=== PATIENT | male | born 1990 | race Caucasian/White ===

== ENCOUNTER 2017-01-07 09:24 | Emergency (ER) | payer OTHER ==
[~2017-01-07] VITALS: Ht 172.7 cm; Wt 71.0 kg
[2017-01-07 09:26] VITALS: Ht 172.7 cm; Wt 71.0 kg
[2017-01-07] MEDS ORDERED: IBUPROFEN 800 MG TAB PO ONE (10:00)
--- NOTE | 2017-01-07 10:07 | ERD ---
ER Documentation Chief Complaint Date/Time DATE: 01/07/17 TIME: 10:04 Chief Complaint lt hand pain from previous injury HPI This is a 26-year-old male who presents to the emergency department today complaining of some left hand pain. Patient states he had an injury to his left hand on August 24 and had surgery in September 11 and had pins placed. Patient states he was not scheduled to have the pins removed until December 03 however he never got them removed because he went to [facility]. Patient states he was in [facility] for 6 [facility]. States that one pin fell out on its own. States that the other pain is bothering him and he wants it removed. Patient states he initially took [place] and tramadol for the pain. States that the doctor that was seen him and was going to do the pin removal no longer takes his insurance. Denies any fevers or chills or new trauma. ROS All systems reviewed and are negative except as per history of present illness. Medications Home Meds Active Scripts Naproxen* (Naprosyn*) 500 Mg Tablet, 500 MG PO BID Y for PAIN AND/OR INFLAMMATION, #30 TAB Prov:PAT MONTES PA-C 01/07/17 Allergies Allergies: Coded Allergies: No Known Allergy (Unverified , 08/13/13) PMhx/Soc History of Surgery: Yes (LEFT HAND) Anesthesia Reaction: No Hx Neurological Disorder: No Hx Respiratory Disorders: No Hx Cardiac Disorders: No Hx Psychiatric Problems: No Hx Miscellaneous Medical Probl: No Hx Alcohol Use: No Hx Substance Use: No Hx Tobacco Use: No Physical Exam Vitals Vital Signs Date Time Temp Pulse Resp B/P Pulse Ox O2 Delivery O2 Flow Rate FiO2 01/07/17 09:26 98.1 66 16 136/74 98 Physical Exam Const: No acute distress Head: Atraumatic Eyes: Normal Conjunctiva ENT: Normal External Ears, Nose and Mouth. Neck: Full range of motion..~ No meningismus. Resp: Clear to auscultation bilaterally Cardio: Regular rate and rhythm, no murmurs Abd: Soft, non tender, non distended. Normal bowel sounds Skin: No petechiae or rashes Back: No midline or flank tenderness MSK left hand with no obvious deformity. Mild effusion. No ecchymosis. Tenderness to palpation fourth and fifth metatarsal with evidence of pin placement. Good cap refill. Pulses 2+. Neur: Awake and alert Psych: Normal Mood and Affect Results 24 hrs Current Medications Medications (Trade) Dose Ordered Sig/Chirag Route PRN Reason Start Time Stop Time Status Last Admin Dose Admin Ibuprofen (Motrin) 800 mg ONCE ONCE PO 01/07/17 10:00 01/07/17 10:01 DC 01/07/17 09:44 Patient: LESLIE GASPAR : 1990 Age: 26 Sex: M MR #: [id number] DOS: 01/07/17 0000 Ordering MD: PAT MONTES PA-C Location: [facility] Room/Bed: PROCEDURE: Left hand series CLINICAL INDICATION: Trauma. Pin placement. TECHNIQUE: Three views of the left hand were obtained. COMPARISON: No prior studies are available for comparison. FINDINGS: There is normal mineralization and alignment of the bones of the left hand. There is a fracture through the base of the fourth metacarpal. There is a skin traversing the base of the fourth metacarpal fracture consistent with given history of pin placement. The hardware appears intact. No other fractures are identified. The soft tissues are within normal limits. IMPRESSION: 1. Fifth metacarpal fracture with associated metallic pin. RPTAT: KK .Sanjeev Sood MD, MD Date Time Electronically viewed and signed by .Sanjeev Sood MD, MD on 2016 10:16 .B/ CC: PAT MONTES PA-C Procedures/MDM This is a 26-year-old male who presents to the emergency department today complaining of left hand pain. Patient patient had a trauma in August 24 and had pins placed. Patient has not been seen here in the emergency department for this injury and therefore did obtain images of the patient's left hand to evaluate the pin placement. Per the radiology report images of the left hand show 1/5 metacarpal fracture with associated metallic pin. There is normal mineralization and alignment of the bones. There is also fracture through the base of the fourth metacarpal. There is skin traversing the base of the fourth metacarpal fracture consistent with given history of pin placement. There are no other fractures identified. Soft tissues are within normal limits. Patient's fracture and pin placement as a source of the patient's pain. Patient has acute on chronic pain. Patient is afebrile and otherwise well-appearing. There is no erythema or warmth and of low suspicion for septic joint, gout, cellulitis Patient was given a Motrin here in the emergency department. He will be given a prescription for Naprosyn for home. I have also given him a list of referrals for [facility] hand [facility]. At this time the patient is stable for discharge and outpatient management. Patient should follow up with their PCP in the next 1-2 days. They may return to the emergency department sooner for any persistent or worsening of symptoms. Patient understood and agreed with the plan. Departure Diagnosis: Primary Impression: Pain of hand Laterality: left Qualified Code: M79.642 - Pain of left hand Condition: Fair PAT MONTES PA-C Jan 07, 2017 10:06
--- NOTE | 2017-01-07 10:17 | RADRPT ---
PROCEDURE: Left hand series CLINICAL INDICATION: Trauma. Pin placement. TECHNIQUE: Three views of the left hand were obtained. COMPARISON: No prior studies are available for comparison. FINDINGS: There is normal mineralization and alignment of the bones of the left hand. There is a fracture thr ough the base of the fourth metacarpal. There is a skin traversing the base of the fourth metacarpa l fracture consistent with given history of pin placement. The hardware appears intact. No other f ractures are identified. The soft tissues are within normal limits. IMPRESSION: 1. Fifth metacarpal fracture with associated metallic pin. RPTAT: KK .Sanjeev Sood MD, MD Date Time Electronically viewed and signed by .Sanjeev Sood MD, MD on 01/07/2017 10:16 .B/
[2017-01-07] MEDS ORDERED: NAPR-260 PO (10:42)
== END 2017-01-07 11:12 | disposition home or self-care (01) ==
LOC: FTE 09:24
DX: G89.18 Other acute postprocedural pain (principal)
CPT/HCPCS: 73130; Z7502; Z7610

== ENCOUNTER 2019-06-04 17:30 | Emergency (ER) | payer SELFPAY ==
[~2019-06-04] VITALS: Ht 167.6 cm; Wt 71.0 kg
[~2019-06-04 17:30] MED LIST: CEPH-443 PO; NAPR-985 PO; SULF1TAB31 PO
[2019-06-04 17:32] VITALS: Ht 167.6 cm; Wt 71.0 kg
--- NOTE | 2019-06-04 17:42 | EN ---
Date/Time of Note Date/Time of Note DATE: 06/04/19 TIME: 17:40 ER Progress Note [id number]-old male with right axillary abscess spontaneously draining but needs I&D. ED 2 appropriate. No SIRS criteria. HAM BELTRAN MD Jun 04, 2019 17:42
[2019-06-04] MEDS ORDERED: TRIMETHOPRIM/SULFAMETHOX (DS) TAB PO ONE (18:00)
[2019-06-04] MEDS ORDERED: HYDROCODONE/APAP (5/325) TAB PO ONE (18:00)
[2019-06-04] MEDS ORDERED: LIDOCAINE 2% (MDV) 20 ML INJ INJ ONE (18:00)
[2019-06-04] MEDS ORDERED: CEPHALEXIN 500 MG CAP PO ONE (18:00)
--- NOTE | 2019-06-04 18:03 | ERD ---
ER Documentation Chief Complaint Chief Complaint right armpit abscess x 3 days HPI 28-year-old male otherwise healthy presents to the emergency department complaining of abscess to the right axillary region worsening over the past 3 days. He reports associated redness, swelling, discharge, and pain. Symptoms are moderate and constant. He tried no medication for relief of symptoms. He denies any fevers, chills, or other symptoms at this time. ROS All systems reviewed and are negative except as per history of present illness. Medications Home Meds Active Scripts Naproxen* (Naprosyn*) 500 Mg Tablet, 500 MG PO BID PRN for PAIN AND/OR INFL AMMATION, #30 TAB Prov:JOAO LUNA PA-C 06/04/19 Cephalexin* (Keflex*) 500 Mg Capsule, 500 MG PO QID for 7 Days, CAP Prov:JOAO LUNA PA-C 06/04/19 Sulfamethoxazole/Trimethoprim* (Bactrim Ds* Tablet) 1 Each Tablet, 1 TAB PO BID, #14 TAB Prov:JOAO LUNA PA-C 06/04/19 Naproxen* (Naprosyn*) 500 Mg Tablet, 500 MG PO BID PRN for PAIN AND/OR INFLAMMATION, #30 TAB Prov:PAT MONTES PA-C 01/07/17 Allergies Allergies: Coded Allergies: No Known Allergy (Unverified , 08/13/13) PMhx/Soc History of Surgery: Yes (LEFT HAND) Anesthesia Reaction: No Hx Neurological Disorder: No Hx Respiratory Disorders: No Hx Cardiac Disorders: No Hx Psychiatric Problems: No Hx Miscellaneous Medical Probl: No Hx Alcohol Use: No Hx Substance Use: No Hx Tobacco Use: No FmHx Family History: No diabetes Physical Exam Vitals Vital Signs Date Temp Pulse Resp B/P (MAP) Pulse Ox O2 O2 Flow FiO2 Time Delivery Rate 06/04/19 98.5 95 18 133/79 99 Room Air 18:52 (97) 06/04/19 98.4 110 18 141/64 99 17:32 (89) Physical Exam Const: No acute distress Head: Atraumatic Eyes: Normal Conjunctiva ENT: Normal External Ears, Nose and Mouth. Neck: Full range of motion. No meningismus. Resp: Clear to auscultation bilaterally Cardio: Regular rate and rhythm, no murmurs Skin: There is an approximate 5 cm x 5 cm slightly fluctuant abscess to the right axillary region with minimal discharge. Mild surrounding erythema and warmth. No lymphatic streaking. Ext: No cyanosis, or edema Neur: Awake and alert Psych: Normal Mood and Affect Results 24 hrs Current Medications Medications Dose Sig/Chirag Start Time Status Last (Trade) Ordered Route PRN Stop Time Admin Dose Reason Admin 1 tab ONCE ONCE 06/04/19 DC 06/04/19 Acetaminophen PO 18:00 18:08 / 06/04/19 18:01 Hydrocodone Bitart (Gill (5/325)) Lidocaine 20 ml ONCE ONCE 06/04/19 DC (Xylocaine INJ 18:00 2% (Mdv) 20 06/04/19 18:01 ml) Cephalexin 500 mg ONCE ONCE 06/04/19 DC 06/04/19 (Keflex) PO 18:00 18:08 06/04/19 18:01 1 tab ONCE ONCE 06/04/19 DC 06/04/19 Trimethoprim/ PO 18:00 18:07 06/04/19 18:01 Sulfamethoxaz ole (Bactrim (Ds)) Procedures/MDM 28-year-old male presents to the emergency department with abscess to the right axillary region. No evidence of systemic infection. Patient was given the full risks, benefits, alternatives to abscess incision and drainage and he gave verbal consent. Abscess Incision and Drainage with irrigation by me: Location: Right axilla Anesthesia: Local 1% Lidocaine Technique: Irrigated. Disrupted loculations w/ instrumentation Packing: None Complications: Neurovascularly intact post procedure 48 hour wound check. Scar minimization instructions given. Patient's dermatologic symptoms have stabilized while they have been evaluated in the department and are appropriate for outpatient work up. No evidence of Santosh Ervin's syndrome, Kawasaki's, or sepsis. No evidence of life-threatening pathology at time of discharge. Pt/family in agreement with discharge plan/diagnosis. Pt/family advised to return immediately with any new or worsening symptoms. Follow-up with primary care physician within the next 1-2 days. Departure Diagnosis: Primary Impression: Abscess of right axilla Condition: Fair Additional Instructions: Follow up with your PCP within the next 1-3 days for a repeat evaluation. If you require a referral to a specialist, your Primary Care Provider may be able to provide this for you. In most patient cases, a referral is not required. If you have further questions regarding this matter, please ask your Primary Care Provider. Return the the emergency department immediately if symptoms worsen or change. If you have any questions regarding medications, ask your pharmacist or us before you leave. If any adverse reactions, occur while taking your medications, discontinue the treatment and return to the emergency department immediately. If any new or worsening symptoms, uncontrolled fevers, or other unexplained symptoms occur, return to the emergency department immediately. Take your medications as directed, and complete the entire course of treatment. JOAO LUNA PA-C Jun 04, 2019 18:03
[2019-06-04 18:52] VITALS: BP 133/79; PULSE 95; RESP 18
== END 2019-06-04 18:53 | disposition home or self-care (01) ==
LOC: FTE 17:30
DX: L02.411 Cutaneous abscess of right axilla (principal)